=== PATIENT | female | born 2000 | race Caucasian/White ===

== ENCOUNTER → 2024-06-14 | Outpatient (CLI) | payer BC, SELFPAY ==
--- NOTE | 2024-06-14 09:18 | US_ITS ---
EXAM: US SOFT TISSUES OF THE BACK CLINICAL INDICATION: lump midline upper back TECHNIQUE: Real-time ultrasound scan of the soft tissues of the upper back with image documentation. COMPARISON: No relevant prior studies available. FINDINGS: 2.8 x 2.2 x 1.7 cm complex avascular collection noted within the soft tissues of the upper back region of palpable abnormality which may represent abscess or hematoma. US/Abdomen Limited IMPRESSION: Soft tissue collection of the upper back which may represent hematoma or abscess. Electronically Signed: Arnoldo Kamara MD at 12:35 EDT ,
== END | disposition home or self-care (01) ==
PROVIDERS: Referring Provider Surgery Plastic and Reconstructive Surgery; Visit Provider Surgery Plastic and Reconstructive Surgery
DX: R22.2 Localized swelling, mass and lump, trunk (principal)
CPT/HCPCS: 76705; 87070; 87075; 87205

== ENCOUNTER → 2025-01-23 | Outpatient (CLI) | payer BC, SELFPAY ==
--- NOTE | 2025-01-23 11:30 | CYST_PTH ---
PATIENT: ELIZABETH GERBER LOC: [facility] U#:[id number] AGE/SX: ROOM: RE01/23/[address]: Dr. Deepak Rose MD : 2000 BED: DIS: 01/23/2025 SPEC #: [id number] RECD: 01/23/25 14:38 STATUS: KOJO MELENDEZ #: [id number] JIM: 01/23/25 11:[address]: eDepak Rose DEPT: SURGICAL PATHOLOGY RECD BY: Mirza Christian Tissues: A - CYST Procedures: Surgery Specimen Level III HEADER OPERATION: Cyst excision and closure PRE-OP DIAGNOSIS: Cyst upper back TISSUE SUBMITTED: A- Back cyst MICROSCOPIC DIAGNOSIS A. Skin, back, cyst, excision: * Benign epidermal invagination with keratin debris and adjacent scar - see note. * Note: The histologic findings are suggestive of dilated pore. MICROSCOPIC DESCRIPTION Slides are reviewed. GROSS DESCRIPTION A. Received in formalin in a container labeled with the patient's name, date of , and back cyst is an unoriented and irregular soft tissue excision measuring 1.4 x 1.1 x 0.6 cm. One aspect is partially surfaced by white-montel[place], wrinkled skin measuring 1.4 x 0.6 cm. The skin is notable for a 0.4 x 0.2 cm disrupted and indented focus situated 0.2 cm from the peripheral margin. The deep margin is inked green and serial sections reveal that the indented focus corresponds to a 0.6 x 0.4 x 0.2 cm possible cystic structure filled with ko friable material. The inner lining is ko-pink and appears smooth. The cystic structure focally abuts the peripheral/deep margin. Submitted entirely in A1. [facility] 01-23-2025 CPT:21681
== END | disposition home or self-care (01) ==
PROVIDERS: Referring Provider Surgery Plastic and Reconstructive Surgery; Visit Provider Surgery Plastic and Reconstructive Surgery
DX: L72.9 Follicular cyst of the skin and subcutaneous tissue, unspecified (principal)
CPT/HCPCS: 88304